=== PATIENT | male | born 1985 | race Caucasian/White ===

== ENCOUNTER 2016-08-08 02:02 | Emergency (ER) | payer BC, OTHER ==
[~2016-08-08] VITALS: Ht 190.5 cm; Wt 127.0 kg
[2016-08-08] MEDS ORDERED: PROZ40CA PO (02:11)
[2016-08-08 02:41] VITALS: O2SAT 100
[2016-08-08] MEDS ORDERED: NS 1,000 ML IV SCH (02:43)
[2016-08-08] MEDS ORDERED: PROPOFOL 200 MG/20 ML VIAL As Ordered ONE (02:43)
[2016-08-08] MEDS ORDERED: KETAMINE HCL 200 MG/20 ML VIAL IV ONE (02:45)
[2016-08-08] MEDS ORDERED: NS 500 ML IV ONE (02:45)
[2016-08-08] MEDS ORDERED: METAL LOCK LOOP XX ONE (02:46)
[2016-08-08] MEDS: PROPOFOL 200 MG/20 ML VIAL IV PRN ×2 (02:55→02:56)
--- NOTE | 2016-08-08 03:01 | REP ---
Clinical: Dislocation. Technique: Single AP view of the shoulder. Findings: Anteroinferior glenohumeral joint dislocation is appreciated. No obvious acute fracture. Age-related degenerative changes at the acromioclavicular joint noted. Impression: Acute anteroinferior glenohumeral joint dislocation. Signed by Daniel Conte MD 08/08/2016 02:53 A
--- NOTE | 2016-08-08 04:40 | REP ---
Clinical: Post reduction. Technique: Single AP portable view of the left shoulder. Findings: Seemingly satisfactory reduction at the glenohumeral joint is appreciated. No obvious acute fracture or further dislocation. Acromioclavicular joint appears normal. Impression: Satisfactory reduction. Signed by Daniel Conte MD 08/08/2016 04:31 A
[2016-08-08 06:28] VITALS: BP 122/67
== END 2016-08-08 06:43 | disposition home or self-care (01) ==
LOC: M ED 03:39
DX: S43.002A Unspecified subluxation of left shoulder joint, initial encounter (principal); X50.9XXA Other and unspecified overexertion or strenuous movements or postures, initial encounter; Y92.019 Unspecified place in single-family (private) house as the place of occurrence of the external cause; Y93.89 Activity, other specified; Y99.8 Other external cause status; Z79.899 Other long term (current) drug therapy

== ENCOUNTER 2019-02-21 13:28 | Emergency (ER) | payer OTHER, BC ==
[~2019-02-21] VITALS: Ht 190.5 cm; Wt 113.7 kg
[~2019-02-21 13:28] MED LIST: PROZ40CA PO
--- NOTE | 2019-02-21 14:21 | REP ---
Right ankle series: Four views. History: Injury in a fall. Findings: There is moderate to marked anterolateral soft-tissue swelling. Ankle mortise is intact. No fractures seen. Bones joints and soft tissues are otherwise unremarkable. Impression: Moderate to marked soft tissue swelling. No fracture seen. Electronically Signed by Olman Gomez MD 02/21/2019 02:12 P
[2019-02-21 15:31] VITALS: BP 137/76
== END 2019-02-21 15:33 | disposition home or self-care (01) ==
LOC: M ED 13:28
DX: S93.401A Sprain of unspecified ligament of right ankle, initial encounter (principal); M79.89 Other specified soft tissue disorders; W17.89XA Other fall from one level to another, initial encounter; Y99.0 Civilian activity done for income or pay; Z79.891 Long term (current) use of opiate analgesic

== ENCOUNTER → 2019-05-10 | Outpatient (REF) | payer BC ==
[2019-05-10 09:46] LABS: SEMEN APPEARANCE OPAQUE (OPAQUE); SEMEN VISCOSITY LIQUID (LIQUID); SEMEN VOLUME 2.5 ml (2.0-5.0)
[2019-05-10 09:47] LABS: SEMEN pH 8.5 (7.0-8.0); WBC CONCENTRATION >1 M/ml (<=1 M/ml)
== END ==
LOC: M LAB REF 09:09
PROVIDERS: ATTEND Urology
DX: Z30.2 Encounter for sterilization (principal)